=== PATIENT | female | born 1955 | race Two or more races ===

== ENCOUNTER → 2016-08-31 | Outpatient (CLI) | payer BC ==
[2014-03-27 14:17] VITALS: BP 100/63
[~2016-08-31] MED LIST: CELE200C PO; CYCL10TA2 PO; ESTR0.3T PO; LEVO50TA5 PO; OLAN10TA3 PO; SERT100T PO; TRAM-29 PO
--- NOTE | 2016-08-31 16:03 | KCIC ---
PROCEDURE MRI lumbar spine without contrast. HISTORY Low back pain, neuropathy, pain into both legs for 6 months greater on the right TECHNIQUE Sagittal and axial T1 and T2 and sagittal STIR images were acquired of the lumbar spine. COMPARISON None FINDINGS Lumbar vertebral body stature and AP alignment are maintained. There is mild to moderate degenerative disc disease at L4-5 and L5-S1, degenerative endplate change at these levels. There is mild disc desiccation L2-3. Conus terminates at L1. There is likely 1 centimeter cyst of the left kidney. L1-L2: Spinal canal and neural foramina are adequate. L2-3: There is negligible disc osteophyte complex and bulge greater in the right lateral recess. Spinal canal and neural foramina are adequate. L3-4: There is negligible disc osteophyte complex and bulge greater in the far right lateral recess. Spinal canal and neural foramina are adequate. There is mild facet hypertrophic change. L4-5: There is mild to moderate facet degenerative change and mild buckling of the ligamentum flavum. There is negligible disc osteophyte complex, superimposed shallow bulge/protrusion eccentric to the far left lateral recess. There is mild to moderate narrowing of the far left lateral recess, very mild narrowing of the far right lateral recess. Neural foramina are adequate. L5-S1: There is a shallow posterior bulge. There is no significant impingement of the descending S1 nerve roots. There is moderate narrowing of the right neural foramen, also apparently contact of the proximal extraforaminal right L5 nerve root by disc osteophyte complex.. Left neural foramen is adequate. There is mild facet hypertrophic change. IMPRESSION 1. There is mild to moderate degenerative disc disease at L4-5 and L5-S1, minimally at L2-3. 2. There is mild to moderate left and mild right narrowing of the far lateral recesses at L4-5. 3. There is moderate narrowing of the right L5-S1 neural foramen. Electronically signed by: Noah Patel MD (Aug 31, 2016 16:02:12)
== END | disposition home or self-care (01) ==
LOC: KCIC MRI 15:00
PROVIDERS: ATTEND Family Medicine
DX: M54.5 Low back pain (principal); G62.9 Polyneuropathy, unspecified
CPT/HCPCS: 72148